=== PATIENT | male | born 1950 | race Caucasian/White ===

== ENCOUNTER → 2017-12-08 | Day surgery (SDC) | payer BC, OTHER ==
[~2017-12-08] MED LIST: Propofol 200 MG/20 ML SDV IV ONE
[2017-12-08] MEDS: Lactated Ringers 1,000 ML IV SCH (08:18)
--- NOTE | 2017-12-11 08:20 | OR ---
DATE OF OPERATION: 12/08/2017 PREOPERATIVE DIAGNOSIS: FOLLOW UP POLYPS. POSTOPERATIVE DIAGNOSIS: FOLLOW UP POLYPS. SURGEON: Lamonte Bear MD PROCEDURE: FULL-LENGTH COLONOSCOPY WITH BIOPSIES X2. ANESTHESIA: ASSEMBLER PRODUCT. COMPLICATIONS: None. SPECIMEN: Right-sided biopsies x2. FINDINGS: 1. Full-length colonoscopy. 2. 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 RECOMMENDATIONS: Routine colonoscopy every 10 years at this point. INDICATIONS: The patient had a prior colonoscopy 5 years ago. He had one polyp removed. We recommended a 5-year followup. DESCRIPTION OF PROCEDURE: The patient was prepped and draped, placed in the left lateral decubitus position. A lubricated Olympus colonoscope was inserted and safely and easily advanced to the cecum. We were able to directly visualize the ileocecal valve and appendiceal orifice. The bowel prep was excellent. Upon withdrawal of the scope, the cecal pouch appeared benign. The ascending colon did have a very nonspecific mild patchy colitis appearance to it. 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 We did do 2 biopsies for confirmation but nothing worrisome was seen. The rest of the transverse and descending areas were benign. Throughout the sigmoid colon, I found no signs of polyps, mass, ulceration, or bleeding sites. No vascular abnormalities or signs of colitis. No significant diverticular disease. The rectal vault was benign. Retroflexion of the scope in the rectum showed no anal lesions. Air was suctioned, scope removed without complication. KEYONA/REHAN /[id number]
--- NOTE | 2017-12-11 08:49 | LETTER ---
12/08/2017 Virgie Garcia, Family Nurse Practitioner [facility], [address] [address] RE: ANDERSON ELAINE : 1950 Dear Mrs. Garcia: Your patient, Anderson Elaine just had his colonoscopy for a followup on polyps. His colon was free of any polyps. He did have some nonspecific colitis in the right colon; I suspect it is an early melanosis change. It did not look specific for any type of inflammatory or infectious colitis at all. I will make sure to get you the pathology reports on that. Otherwise, the colonoscopy looked wonderful. He is fine to have a 10-year follow up at this point. Thanks for your referral. I hope this letter finds you well. Respectfully, KEYONA/REHAN /[id number]
== END ==
LOC: CC.SDS 07:58
PROVIDERS: ATTEND Family Medicine
DX: Z12.11 Encounter for screening for malignant neoplasm of colon (principal); K52.89 Other specified noninfective gastroenteritis and colitis; L85.3 Xerosis cutis; Z86.010 Personal history of colon polyps
CPT/HCPCS: 45380; J2704; J7120

== ENCOUNTER → 2020-09-18 | Day surgery (SDC) | payer OTHER ==
[~2020-09-18] MED LIST changes: +Ketamine 200 MG/20 ML MDV ONE; +Lactated Ringers 1,000 ML IV ONE; -Propofol 200 MG/20 ML SDV IV ONE; +Propofol 200 MG/20 ML SDV ONE; +fentaNYL 100 MCG/2 ML SDV ONE
--- NOTE | 2020-09-18 13:33 | OR ---
DATE OF OPERATION: 09/18/2020 PREOPERATIVE DIAGNOSIS: HEMATOCHEZIA. POSTOPERATIVE DIAGNOSIS: HEMATOCHEZIA. SURGEON: Lamonte Bear MD PROCEDURE: FULL-LENGTH COLONOSCOPY. ANESTHESIA: MAC. COMPLICATIONS: None. SPECIMEN: None. FINDINGS: 1. Full-length diagnostic colonoscopy. 2. Internal hemorrhoids. RECOMMENDATIONS: Followup colonoscopy in 10 years. INDICATIONS: The patient has 2 prior colonoscopies with the last one 3 years ago. He unfortunately had 1 episode of hematochezia. He was sent for diagnostic scope to ensure no pathology. DESCRIPTION OF PROCEDURE: The patient was prepped and draped, placed in the left lateral decubitus position. A lubricated Olympus colonoscope was inserted and with ease advanced to the cecum. Direct visualization of the ileocecal valve and appendiceal orifice was accomplished. The bowel prep was adequate. He did have a lot of stool in both the cecum and rectal vault. Upon withdrawal, the right transverse and descending colons appeared completely benign throughout the sigmoid and rectosigmoid junction. No pathology including polyps, masses, ulceration, or bleeding sites. No vascular abnormalities or signs of colitis. The rectal vault had a lot of stool. I was able to irrigate the majority of this out. I could find no polyps, masses, or lesions. Retroflexion was able to show a significant amount of internal hemorrhoids in the perianal region, otherwise benign. Air was then suctioned and the scope removed without complication. KEYONA/REHAN /[id number]
== END ==
LOC: CC.SDS 10:59
PROVIDERS: ATTEND Family Medicine
DX: K92.1 Melena (principal); K62.5 Hemorrhage of anus and rectum; E78.2 Mixed hyperlipidemia; R03.0 Elevated blood-pressure reading, without diagnosis of hypertension; Z01.812 Encounter for preprocedural laboratory examination; Z20.828 Contact with and (suspected) exposure to other viral communicable diseases; Z79.899 Other long term (current) drug therapy
CPT/HCPCS: 00811; J2704; J3010; J7120